=== PATIENT | female | born 1930 | race Caucasian/White ===

== ENCOUNTER → 2017-04-17 | Outpatient (CLI) | payer MEDICARE, OTHER ==
[~2017-04-17] MED LIST: CIPRO250 MG PO; CIPRO500 MG PO; CIPROFLOXACIN500 MG PO; Ciprofloxacin500 MG PO; FLAGYL250 MG PO; FLAGYL500 MG PO; Flagyl500 M1 PO; MACROBID100 M1 PO; METOPROLOL25 MG PO; Meclizine25 MG PO; PHENERGAN25 M3 PO; SYNTHROID0.025 MG PO; TORADOL10 MG PO; VICODIN 500 MG-1 TAB PO; ZANTAC150 MG PO; ZOFRAN ODT4 MG SL
== END ==
LOC: US 13:27
DX: N20.0 Calculus of kidney (principal)

== ENCOUNTER 2017-05-01 00:47 | Inpatient (IN) | payer MEDICARE, OTHER ==
[~2017-05-01] VITALS: Ht 157.5 cm; Wt 63.2 kg
[2017-05-01] VITALS (9 sets, daily range): BP systolic 122–157; BP diastolic 50–80
[2017-05-01 01:13] LABS: BASO % 0.4 % (0.0-1.0); EOS # 0.1 10*3/uL (0.0-0.4); EOS % 1.6 % (1.0-4.0); HEMATOCRIT 38.6 % (37.0-47.0); HEMOGLOBIN 12.9 g/dl (12.0-16.0); LYMPH # 0.9 10*3/uL (1.3-4.4); LYMPH % 12.5 % (27.0-41.0); MEAN CELL VOLUME 90.6 fl (81.0-99.0); MEAN CORPUSCULAR HGB 30.3 pg (27.0-31.0); MEAN CORPUSCULAR HGB CONC 33.4 g/dl (33.0-37.0); MEAN PLATELET VOLUME 10.5 fl (9.6-12.3); MONO # 0.7 10*3/uL (0.1-1.0); MONO % 10.7 % (3.0-9.0); NEUT # 5.1 10*3/uL (2.3-7.9); NEUT % 74.1 % (47.0-73.0); PLATELET COUNT AUTOMATED 233 10*3/uL (130-400); RED BLOOD COUNT 4.26 10*6/uL (4.10-5.10); RED CELL DISTRI WIDTH 12.5 % (0-14.5); WHITE BLOOD COUNT 6.9 10*3/uL (4.8-10.8)
[2017-05-01 01:23] LABS: INTERNATIONAL NORM RATIO 1.1 (2.0-3.5)
[2017-05-01 01:30] LABS: BILIRUBIN NEGATIVE (NEGATIVE); BLOOD 3+ (NEGATIVE); CLARITY SL CLOUDY (CLEAR); COLOR YELLOW (YELLOW); GLUCOSE NEGATIVE (NEGATIVE); KETONE NEGATIVE (NEGATIVE); LEUKO ESTERASE 1+ (NEGATIVE); NITRITE NEGATIVE (NEGATIVE); UROBILINOGEN 0.2 E.U./dl (0.2-1.0)
[2017-05-01 01:36] LABS: MUCOUS 1+
[2017-05-01 01:37] LABS: RBC 31-40 rbc/hpf (0-2)
[2017-05-01 01:39] LABS: BACTERIA 1+
[2017-05-01 01:41] LABS: ALBUMIN 3.9 gm/dl (3.1-4.5); ALKALINE PHOSPHATASE 89 U/L (45-117); BUN 11 mg/dl (7-24); CHLORIDE 105 mmol/L (98-107); CREATININE 0.84 mg/dL (0.55-1.02); POTASSIUM 3.6 mmol/L (3.5-5.1); SGOT/AST 18 IU/L (3-35); SGPT/ALT 24 U/L (12-78); SODIUM 141 mmol/L (136-145); TOTAL PROTEIN 7.1 gm/dL (6.4-8.2)
[2017-05-01 01:44] LABS: TROPONIN I < 0.015 ng/ml (<0.045)
--- NOTE | 2017-05-01 04:10 | NUR ---
CALLED TO GIVE REPORT, WAS ADVISED WILL HAVE TO CALL BACK.
--- NOTE | 2017-05-01 08:00 | NUR ---
RESTING QUIETLY NO C/O NO DISTRESS NOTED. HOB ELEVATED. SEE SHIFT ASSESSMENT.
[2017-05-01] MEDS ORDERED: LOSARTAN POTASS25 M1 PO (09:46)
[2017-05-01] MEDS ORDERED: AMLODIPINE BESYL5 MG PO (09:47)
[2017-05-01] MEDS ORDERED: VITAMIN D-32000 UNIT PO (09:48)
--- NOTE | 2017-05-01 09:49 | NUR ---
SONYA AGUILAR CALLED TO VERIFY MEDS AND MED REC UPDATED.
--- NOTE | 2017-05-01 15:50 | NUR ---
PT TEMP 102.9, MEDICATED IV TYLENOL 2 TABS.
--- NOTE | 2017-05-01 18:30 | NUR ---
RECHECK OF TEMP 99.5
[2017-05-02] VITALS: BP 175/67
--- NOTE | 2017-05-02 01:09 | NUR ---
DR. HORN NOTIFIED AT THIS TIME THAT PATIENTS TEMPERATURE 101.9 AFTER TYLENOL GIVEN 1 HOUR AGO. PATIENT ALSO STATES THAT SHE BELIEVES SHE IS ALLERGIC TO TYLENOL BECAUSE SHE THINKS HE THROAT IS GETTING SORE DUE TO THE TYLENOL. THIS NURSE TOLD THE PATIENT THAT SHE IS COUGHING ALOT AND IT MAY BE DUE TO THAT, THE PATIENT STATES SHE WOULD LIKE TO SWITCH TO SOME OTHER FORM OF MEDICATION FOR HER FEVER. DR. HORN STATED HE WOULD ADD MOTRIN
--- NOTE | 2017-05-02 03:35 | NUR ---
IV SITE LEAKING. DISCONTINUED AND RESTARTED IN THE LEFT AC #22 GAUGE. IV FLUIDS INFUSING WITHOUT PROBLEM
[2017-05-02 06:29] LABS: BASO % 0.3 % (0.0-1.0); EOS % 0.2 % (1.0-4.0); HEMATOCRIT 34.9 % (37.0-47.0); HEMOGLOBIN 11.8 g/dl (12.0-16.0); LYMPH # 1.1 10*3/uL (1.3-4.4); LYMPH % 18.7 % (27.0-41.0); MEAN CELL VOLUME 93.6 fl (81.0-99.0); MEAN CORPUSCULAR HGB 31.6 pg (27.0-31.0); MEAN CORPUSCULAR HGB CONC 33.8 g/dl (33.0-37.0); MONO # 0.8 10*3/uL (0.1-1.0); MONO % 14.3 % (3.0-9.0); NEUT # 3.8 10*3/uL (2.3-7.9); RED BLOOD COUNT 3.73 10*6/uL (4.10-5.10); RED CELL DISTRI WIDTH 12.7 % (0-14.5); WHITE BLOOD COUNT 5.8 10*3/uL (4.8-10.8)
[2017-05-02 06:31] LABS: PLATELET COUNT AUTOMATED 162 10*3/uL (130-400)
[2017-05-02 06:57] LABS: ALBUMIN 3.2 gm/dl (3.1-4.5); ALKALINE PHOSPHATASE 68 U/L (45-117); BUN 9 mg/dl (7-24); CHLORIDE 111 mmol/L (98-107); CHOLESTEROL 166 mg/dL (<200); CREATININE 0.72 mg/dL (0.55-1.02); FREE T4 0.93 ng/dl (0.76-1.46); HDL CHOLESTEROL 33 mg/dl (40-60); LDL CHOLESTEROL 106 mg/dL (9-159); POTASSIUM 3.4 mmol/L (3.5-5.1); SGOT/AST 35 IU/L (3-35); SGPT/ALT 22 U/L (12-78); SODIUM 144 mmol/L (136-145); TOTAL PROTEIN 6.3 gm/dL (6.4-8.2); TRIGLYCERIDES 133 mg/dl (<150); VLDL CHOLESTEROL 27 mg/dL (6-40)
[2017-05-02 07:04] LABS: INTERNATIONAL NORM RATIO 1.1 (2.0-3.5)
[2017-05-02 08:00] VITALS: BP 126/51
--- NOTE | 2017-05-02 08:37 | NUR ---
AMBULATORY TO BATHROOM, DENIES C/O AT PRESENT TIME. EASY RESPIRATIONS WITH SKIN W/D. SEE SHIFT ASSESSMENT.
--- NOTE | 2017-05-02 09:33 | NUR ---
SHAHLA AT DR GARCIA'S OFFICE NOTIFIED OF CONSULT.
--- NOTE | 2017-05-02 11:30 | NUR ---
DR HUANG WHO IS RUNDING WITH DR GARCIA FROM ID IN TO SEE PT & MADE AWARE OF FACIAL FLUSHING WITH VANCOMYCIN. PT ADMITS TO "SORE THROAT" BUT HAS NO DIFFICULTY SWALLOWING AT THIS TIME. WILL CONTINUE TO MONITOR.
--- NOTE | 2017-05-02 11:35 | NUR ---
Dredge Pipe Installer in to talk to patient. Patient states lives at home alone. There are 0 steps in the home. Physician: Dr. Lion Beavers Pharmacy: [facility] services: no Patient's level of ADLs: INDEPENDENT Patient has working utilities: yes DME: cane Follow-up physician's appointment after d/c: will be made by hospitalist nurse director upon discharge Does patient want to access PORTAL?: no Discharge plan discussed with patient. She lives at home alone but has a brother, [id number], and niece who check in on her. She lives in a mobile home so she states she is able to get around pretty easy. She does use a cane for ambulation. She is independent in her ADLs and ambulation. When medically stable she will be discharged to home. CARLOS JUAN
[2017-05-02 12:00] VITALS: BP 126/50
--- NOTE | 2017-05-02 13:20 | NUR ---
WITHIN MINUTES OF HANDING MEREPENEM, PT REQUESTS THAT IT BE STOPPED BC SHE IS AFRAID THAT SHE IS HAVING A NEGATIVE REACTIION TO THE ABX. NO FACIAL FLUSHING, NO SWALLOWING DIFFICULTIES, VSS. WILL CONTINUE TO MONITOR.
--- NOTE | 2017-05-02 14:31 | NUR ---
PRN CEPACOL LOZENGER ORDERED PER PT REQUEST FOR C/O :SORE THROAT" SEE EMAR.
[2017-05-02 16:00] VITALS: BP 148/52
--- NOTE | 2017-05-02 16:27 | NUR ---
DR GARCIA IN TO SEE PT & INFORMED OF PTS PERCIEVED REACTION TO VANCOMYCIN & MEREPENEM. WILL AWAIT FURTHER ORDERS.
[2017-05-02 20:00] VITALS: BP 154/68
--- NOTE | 2017-05-02 21:30 | NUR ---
PT REFUSING TYLENOL AT THIS TIME FOR TEMPERATURE. STATES SHE WANTS TO SEE IF IT WILL GO DOWN ON IT'S OWN AFTER TAKING THE TAMIFLU BECAUSE SHE BELIEVES SHE HAD A REACTION TO THE TYLENOL LAST NIGHT
--- NOTE | 2017-05-02 23:32 | NUR ---
SPOKE WITH DR. FIELDS AT THIS TIME AND STATED THAT PATIENT HAS A TEMP ONCE AGAIN OF 102. PATIENT REFUSING TYLENOL STATES SHE BELIEVES ITS MAKING HER THROAT SORE BUT SHE IS OK WITH GETTING ANOTHER DOSE OF IBUPROFEN THAT SHE HAD LAST NIGHT. DR. FIELDS STATED IT WAS OK TO PUT IN ANOTHER ONE TIME DOSE OF 600MG IBUPROFEN
[2017-05-03] VITALS: BP 153/52
[2017-05-03 06:57] LABS: BASO % 0.2 % (0.0-1.0); EOS % 0.2 % (1.0-4.0); HEMATOCRIT 35.1 % (37.0-47.0); HEMOGLOBIN 11.7 g/dl (12.0-16.0); LYMPH # 1.4 10*3/uL (1.3-4.4); LYMPH % 29.9 % (27.0-41.0); MEAN CELL VOLUME 93.1 fl (81.0-99.0); MEAN CORPUSCULAR HGB CONC 33.3 g/dl (33.0-37.0); MEAN PLATELET VOLUME 10.1 fl (9.6-12.3); MONO # 0.7 10*3/uL (0.1-1.0); MONO % 14.9 % (3.0-9.0); NEUT # 2.5 10*3/uL (2.3-7.9); NEUT % 54.2 % (47.0-73.0); PLATELET COUNT AUTOMATED 155 10*3/uL (130-400); RED BLOOD COUNT 3.77 10*6/uL (4.10-5.10); RED CELL DISTRI WIDTH 12.7 % (0-14.5); WHITE BLOOD COUNT 4.6 10*3/uL (4.8-10.8)
[2017-05-03 07:04] LABS: BUN 10 mg/dl (7-24); CHLORIDE 113 mmol/L (98-107); POTASSIUM 3.6 mmol/L (3.5-5.1); SODIUM 145 mmol/L (136-145)
[2017-05-03 08:00] VITALS: BP 126/61
--- NOTE | 2017-05-03 08:22 | NUR ---
MEDICATED PO ORDERED PER PT REQUEST WITH CEPACOL FOR C/O "SORE THROAT" SEE EMAR.
--- NOTE | 2017-05-03 08:26 | NUR ---
OOB TO CHAIR, PT STATES "FEELING BETTER TODAY" EASY RESPIRATIONS WTIH SKIN W/D. SEE SHIFT ASSESSMENT.
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
--- NOTE | 2017-05-03 10:49 | NUR ---
OOB TO CHAIR. DECLINES LOVENOX INJECTION
[2017-05-03] MEDS ORDERED: TAMIFLU 75MG CA75 MG PO (10:59)
--- NOTE | 2017-05-03 12:49 | NUR ---
Discharge instructions reviewed with patient/family. Patient receptive and verbalizes understanding. Written instructions given to patient/family. AMPARO FENG
== END 2017-05-03 12:49 | disposition home or self-care (01) | DRG 871 ==
LOC: ED 00:47 → 5E 04:06
PROVIDERS: Emergency Medicine Emergency Medical Services; Family Medicine; Student in an Organized Health Care Education/Training Program; ADMIT Student in an Organized Health Care Education/Training Program
DX: A41.9 Sepsis, unspecified organism (principal); J18.9 Pneumonia, unspecified organism; N39.0 Urinary tract infection, site not specified; R31.9 Hematuria, unspecified; N20.0 Calculus of kidney; I10 Essential (primary) hypertension; E03.9 Hypothyroidism, unspecified; J10.1 Influenza due to other identified influenza virus with other respiratory manifestations; Z88.1 Allergy status to other antibiotic agents; Z88.2 Allergy status to sulfonamides; Z88.0 Allergy status to penicillin; Z88.8 Allergy status to other drugs, medicaments and biological substances; Z87.442 Personal history of urinary calculi; Z98.42 Cataract extraction status, left eye; Z98.41 Cataract extraction status, right eye; Z79.899 Other long term (current) drug therapy

== ENCOUNTER 2017-05-16 08:13 | Emergency (ER) | payer MEDICARE, OTHER ==
[~2017-05-16] VITALS: Ht 167.6 cm; Wt 68.0 kg
[~2017-05-16 08:13] MED LIST changes: +AMLODIPINE BESYL5 MG PO; +LOSARTAN POTASS25 M1 PO; +TAMIFLU 75MG CA75 MG PO; +VITAMIN D-32000 UNIT PO
[2017-05-16 09:11] LABS: BASO % 0.4 % (0.0-1.0); EOS # 0.1 10*3/uL (0.0-0.4); EOS % 0.4 % (1.0-4.0); HEMOGLOBIN 11.3 g/dl (12.0-16.0); LYMPH # 1.3 10*3/uL (1.3-4.4); LYMPH % 11.2 % (27.0-41.0); MEAN CELL VOLUME 91.2 fl (81.0-99.0); MEAN CORPUSCULAR HGB 30.3 pg (27.0-31.0); MEAN CORPUSCULAR HGB CONC 33.2 g/dl (33.0-37.0); MEAN PLATELET VOLUME 9.2 fl (9.6-12.3); MONO % 9.2 % (3.0-9.0); NEUT # 8.9 10*3/uL (2.3-7.9); NEUT % 78.2 % (47.0-73.0); PLATELET COUNT AUTOMATED 317 10*3/uL (130-400); RED BLOOD COUNT 3.73 10*6/uL (4.10-5.10); RED CELL DISTRI WIDTH 12.1 % (0-14.5); WHITE BLOOD COUNT 11.4 10*3/uL (4.8-10.8)
[2017-05-16 09:27] LABS: ALKALINE PHOSPHATASE 76 U/L (45-117); BUN 11 mg/dl (7-24); CHLORIDE 107 mmol/L (98-107); CREATININE 0.67 mg/dL (0.55-1.02); POTASSIUM 3.8 mmol/L (3.5-5.1); SGOT/AST 14 IU/L (3-35); SGPT/ALT 19 U/L (12-78); SODIUM 141 mmol/L (136-145); TOTAL PROTEIN 6.4 gm/dL (6.4-8.2)
[2017-05-16 10:20] LABS: BILIRUBIN NEGATIVE (NEGATIVE); BLOOD 2+ (NEGATIVE); CLARITY SL CLOUDY (CLEAR); COLOR YELLOW (YELLOW); GLUCOSE NEGATIVE (NEGATIVE); KETONE NEGATIVE (NEGATIVE); LEUKO ESTERASE 1+ (NEGATIVE); NITRITE NEGATIVE (NEGATIVE); SPECIFIC GRAVITY 1.015 (1.005-1.030); UROBILINOGEN 0.2 E.U./dl (0.2-1.0)
[2017-05-16 10:32] LABS: RBC 16-20 rbc/hpf (0-2); WBC 31-40 wbc/hpf (0-5)
[2017-05-16 10:33] LABS: BACTERIA 2+
[2017-05-16] MEDS ORDERED: FLAGYL500 MG PO (10:57)
[2017-05-16] MEDS ORDERED: MACROBID100 M1 PO (10:57)
[2017-05-16] MEDS ORDERED: CIPRO500 MG PO (10:57)
== END 2017-05-16 12:00 | disposition home or self-care (01) ==
LOC: ED 08:13
PROVIDERS: Emergency Medicine
DX: K57.92 Diverticulitis of intestine, part unspecified, without perforation or abscess without bleeding (principal); N39.0 Urinary tract infection, site not specified; N20.0 Calculus of kidney; I10 Essential (primary) hypertension; E03.9 Hypothyroidism, unspecified; Z88.0 Allergy status to penicillin; Z88.2 Allergy status to sulfonamides; Z88.8 Allergy status to other drugs, medicaments and biological substances; Z79.899 Other long term (current) drug therapy

== ENCOUNTER 2017-07-28 05:22 | Emergency (ER) | payer MEDICARE, OTHER ==
[~2017-07-28] VITALS: Ht 157.4 cm; Wt 61.2 kg
[2017-07-28 06:11] LABS: BILIRUBIN NEGATIVE (NEGATIVE); BLOOD 3+ (NEGATIVE); CLARITY SL CLOUDY (CLEAR); COLOR YELLOW (YELLOW); GLUCOSE NEGATIVE (NEGATIVE); KETONE NEGATIVE (NEGATIVE); LEUKO ESTERASE 2+ (NEGATIVE); NITRITE NEGATIVE (NEGATIVE); UROBILINOGEN 0.2 E.U./dl (0.2-1.0)
[2017-07-28 06:21] LABS: BASO % 0.6 % (0.0-1.0); EOS # 0.2 10*3/uL (0.0-0.4); EOS % 2.7 % (1.0-4.0); HEMATOCRIT 38.1 % (37.0-47.0); HEMOGLOBIN 12.6 g/dl (12.0-16.0); LYMPH # 1.7 10*3/uL (1.3-4.4); LYMPH % 27.7 % (27.0-41.0); MEAN CELL VOLUME 92.9 fl (81.0-99.0); MEAN CORPUSCULAR HGB 30.7 pg (27.0-31.0); MEAN CORPUSCULAR HGB CONC 33.1 g/dl (33.0-37.0); MEAN PLATELET VOLUME 10.1 fl (9.6-12.3); MONO # 0.6 10*3/uL (0.1-1.0); MONO % 8.9 % (3.0-9.0); NEUT # 3.7 10*3/uL (2.3-7.9); NEUT % 59.6 % (47.0-73.0); PLATELET COUNT AUTOMATED 211 10*3/uL (130-400); RED CELL DISTRI WIDTH 13.2 % (0-14.5); WHITE BLOOD COUNT 6.2 10*3/uL (4.8-10.8)
[2017-07-28 06:26] LABS: BACTERIA 2+; EPITHELIAL CELLS 21-30; MUCOUS 1+; RBC TNTC rbc/hpf (0-2); WBC 41-50 wbc/hpf (0-5)
[2017-07-28 06:40] LABS: ALBUMIN 3.5 gm/dl (3.1-4.5); ALKALINE PHOSPHATASE 82 U/L (45-117); BUN 14 mg/dl (7-24); CHLORIDE 109 mmol/L (98-107); CREATININE 0.85 mg/dL (0.55-1.02); POTASSIUM 3.8 mmol/L (3.5-5.1); SGOT/AST 14 IU/L (3-35); SGPT/ALT 16 U/L (12-78); SODIUM 144 mmol/L (136-145); TOTAL PROTEIN 6.8 gm/dL (6.4-8.2)
== END 2017-07-28 09:00 | disposition home or self-care (01) ==
LOC: ED 05:22
PROVIDERS: Emergency Medicine
DX: M54.9 Dorsalgia, unspecified (principal); I10 Essential (primary) hypertension; Z87.442 Personal history of urinary calculi; Z88.0 Allergy status to penicillin; Z88.2 Allergy status to sulfonamides; Z88.1 Allergy status to other antibiotic agents; W00.0XXA Fall on same level due to ice and snow, initial encounter; Y93.89 Activity, other specified; Y92.89 Other specified places as the place of occurrence of the external cause; Y99.8 Other external cause status

== ENCOUNTER 2018-03-10 09:56 | Emergency (ER) | payer MEDICARE, OTHER ==
[~2018-03-10] VITALS: Ht 157.4 cm; Wt 60.3 kg
--- NOTE | ~2018-03-10 | EKG ---
[place], [place] ELECTROCARDIOGRAM REPORT NAME: BRODIE ENRIQUE UNIT #: [id number] ROOM: DOCTOR: EPIPHANY DRAFT REPORT BIRTHDATE: [birth year] [facility] Test Date: 2018-03-10 Test Time: 10:24:20 Pat Name: BRODIE ENRIQUE Department: Room: Gender: F Ic Design Manager: : [id number] Requested By: JERONIMO ZAMAN Order Number: [id number] Reading MD: Ramírez Mendosa MD Measurements Intervals [place] Rate: 63 P: 34 GA: 129 QRS: -12 QRSD: 80 T: 46 QT: 433 QTc: 444 Interpretive Statements Sinus rhythm No previous ECG available for comparison Electronically Signed On 03-11-2018 14:50:29 PDT by Ramírez Mendosa MD CM:EKGRPT:ELECTROCARDIOGRAM REPORT 1024 [id number] JERONIMO BROWN DRAFT REPORT JERONIMO ZAMAN DO
[2018-03-10 10:25] LABS: BASO % 0.4 % (0.0-1.0); EOS # 0.1 10*3/uL (0.0-0.4); EOS % 1.3 % (1.0-4.0); HEMATOCRIT 41.3 % (37.0-47.0); HEMOGLOBIN 13.6 g/dl (12.0-16.0); LYMPH % 22.8 % (27.0-41.0); MEAN CELL VOLUME 91.6 fl (81.0-99.0); MEAN CORPUSCULAR HGB 30.2 pg (27.0-31.0); MEAN CORPUSCULAR HGB CONC 32.9 g/dl (33.0-37.0); MEAN PLATELET VOLUME 9.8 fl (9.6-12.3); MONO # 0.7 10*3/uL (0.1-1.0); NEUT % 66.8 % (47.0-73.0); PLATELET COUNT AUTOMATED 270 10*3/uL (130-400); RED BLOOD COUNT 4.51 10*6/uL (4.10-5.10); RED CELL DISTRI WIDTH 12.1 % (0-14.5)
[2018-03-10 10:27] LABS: BILIRUBIN NEGATIVE (NEGATIVE); BLOOD 3+ (NEGATIVE); CLARITY CLOUDY (CLEAR); COLOR YELLOW (YELLOW); GLUCOSE NEGATIVE (NEGATIVE); KETONE NEGATIVE (NEGATIVE); LEUKO ESTERASE 2+ (NEGATIVE); NITRITE NEGATIVE (NEGATIVE); PH 5.5 (5.0-9.0); UROBILINOGEN 0.2 E.U./dl (0.2-1.0)
[2018-03-10 10:35] LABS: BACTERIA 2+; EPITHELIAL CELLS 21-30; MUCOUS 2+; RBC TNTC rbc/hpf (0-2); WBC 31-40 wbc/hpf (0-5)
[2018-03-10 10:46] LABS: ALBUMIN 3.7 gm/dl (3.1-4.5); ALKALINE PHOSPHATASE 87 U/L (45-117); BUN 16 mg/dl (7-24); CHLORIDE 108 mmol/L (98-107); CREATININE 0.87 mg/dL (0.55-1.02); LIPASE 239 U/L (73-393); POTASSIUM 4.3 mmol/L (3.5-5.1); SGOT/AST 13 IU/L (3-35); SGPT/ALT 21 U/L (12-78); SODIUM 143 mmol/L (136-145); TOTAL PROTEIN 7.3 gm/dL (6.4-8.2)
[2018-03-10 10:55] LABS: TROPONIN I < 0.015 ng/ml (<0.045)
[2018-03-10] MEDS ORDERED: CIPRO500 MG PO (11:49)
== END 2018-03-10 12:04 | disposition home or self-care (01) ==
LOC: ED 09:56
PROVIDERS: Emergency Medicine
DX: N39.0 Urinary tract infection, site not specified (principal); N20.0 Calculus of kidney; I10 Essential (primary) hypertension; Z88.8 Allergy status to other drugs, medicaments and biological substances; Z88.0 Allergy status to penicillin; Z88.2 Allergy status to sulfonamides; Z88.1 Allergy status to other antibiotic agents; Z79.899 Other long term (current) drug therapy

== ENCOUNTER → 2018-04-15 | Outpatient (CLI) | payer MEDICARE, OTHER | END | disposition home or self-care (01) | LOC: LAB 10:37 | DX: N20.0 Calculus of kidney (principal) ==

== ENCOUNTER → 2018-12-03 | Outpatient (CLI) | payer MEDICARE, OTHER | END | disposition home or self-care (01) | LOC: US 06:15 | DX: K81.9 Cholecystitis, unspecified (principal); R10.13 Epigastric pain; Z87.442 Personal history of urinary calculi ==

== ENCOUNTER → 2019-12-15 | Outpatient (CLI) | payer MEDICARE, OTHER ==
[2019-12-15 10:51] LABS: HEMATOCRIT 42.1 % (37.0-47.0); MEAN CELL VOLUME 92.7 fl (81.0-99.0); MEAN CORPUSCULAR HGB 29.7 pg (27.0-31.0); MEAN CORPUSCULAR HGB CONC 32.1 g/dl (33.0-37.0); MEAN PLATELET VOLUME 10.2 fl (9.6-12.3); RED BLOOD COUNT 4.54 10*6/uL (4.10-5.10); RED CELL DISTRI WIDTH 12.4 % (0-14.5); WHITE BLOOD COUNT 6.6 10*3/uL (4.8-10.8)
[2019-12-15 10:52] LABS: ALBUMIN 3.6 gm/dl (3.1-4.5); ALKALINE PHOSPHATASE 86 U/L (45-117); BUN 18 mg/dl (7-24); CHLORIDE 109 mmol/L (98-107); CHOLESTEROL 219 mg/dL (<200); CREATININE 0.81 mg/dL (0.55-1.02); HDL CHOLESTEROL 35 mg/dl (40-60); LDL CHOLESTEROL 145 mg/dL (9-159); POTASSIUM 4.4 mmol/L (3.5-5.1); SGOT/AST 11 IU/L (3-35); SGPT/ALT 18 U/L (12-78); SODIUM 141 mmol/L (136-145); TOTAL PROTEIN 7.7 gm/dL (6.4-8.2); TRIGLYCERIDES 197 mg/dl (<150); VLDL CHOLESTEROL 39 mg/dL (6-40)
[2019-12-15 11:34] LABS: VITAMIN D, 25-HYDROXY 18.2 ng/mL (30-100)
== END | disposition home or self-care (01) ==
LOC: LAB 09:50
PROVIDERS: Family Medicine
DX: I10 Essential (primary) hypertension (principal); E55.9 Vitamin D deficiency, unspecified; E78.00 Pure hypercholesterolemia, unspecified; R53.83 Other fatigue; L65.9 Nonscarring hair loss, unspecified

== ENCOUNTER 2020-01-10 02:12 | Emergency (ER) | payer MEDICARE, OTHER ==
[~2020-01-10] VITALS: Ht 157.4 cm; Wt 54.4 kg
[2020-01-10 02:41] LABS: BASO % 0.4 % (0.0-1.0); EOS # 0.2 10*3/uL (0.0-0.4); EOS % 2.4 % (1.0-4.0); HEMATOCRIT 39.8 % (37.0-47.0); LYMPH # 2.3 10*3/uL (1.3-4.4); LYMPH % 32.7 % (27.0-41.0); MEAN CELL VOLUME 92.6 fl (81.0-99.0); MEAN CORPUSCULAR HGB 29.5 pg (27.0-31.0); MEAN CORPUSCULAR HGB CONC 31.9 g/dl (33.0-37.0); MEAN PLATELET VOLUME 9.9 fl (9.6-12.3); MONO # 0.7 10*3/uL (0.1-1.0); NEUT # 3.8 10*3/uL (2.3-7.9); NEUT % 54.1 % (47.0-73.0); PLATELET COUNT AUTOMATED 278 10*3/uL (130-400); RED CELL DISTRI WIDTH 12.3 % (0-14.5)
[2020-01-10] MEDS ORDERED: Lopressor25 MG PO (02:54)
[2020-01-10 03:01] LABS: BUN 22 mg/dl (7-24); CHLORIDE 109 mmol/L (98-107); CREATININE 0.92 mg/dL (0.55-1.02); POTASSIUM 3.6 mmol/L (3.5-5.1); SODIUM 140 mmol/L (136-145); TROPONIN I < 0.015 ng/ml (<0.045)
[2020-01-10] MEDS ORDERED: MECLIZINE HYD12.5 MG PO (03:35)
== END 2020-01-10 04:00 | disposition home or self-care (01) ==
LOC: ED 02:12
PROVIDERS: Emergency Medicine
DX: H81.20 Vestibular neuronitis, unspecified ear (principal); Z88.0 Allergy status to penicillin; Z88.2 Allergy status to sulfonamides; Z88.1 Allergy status to other antibiotic agents; Z88.8 Allergy status to other drugs, medicaments and biological substances; Z79.899 Other long term (current) drug therapy

== ENCOUNTER 2020-01-10 14:35 | Inpatient (IN) | payer MEDICARE, OTHER ==
[2020-01-10] VITALS (7 sets, daily range): BP systolic 162–197; BP diastolic 48–82
[~2020-01-10] VITALS: Ht 157.4 cm; Wt 57.3 kg
[~2020-01-10 14:35] MED LIST changes: +Lopressor25 MG PO; +MECLIZINE HYD12.5 MG PO
[2020-01-10 17:06] LABS: BILIRUBIN NEGATIVE (NEGATIVE); BLOOD NEGATIVE (NEGATIVE); CLARITY CLEAR (CLEAR); COLOR YELLOW (YELLOW); GLUCOSE NEGATIVE (NEGATIVE); KETONE NEGATIVE (NEGATIVE); SPECIFIC GRAVITY 1.005 (1.005-1.030)
[2020-01-10 17:07] LABS: LEUKO ESTERASE TRACE (NEGATIVE); NITRITE NEGATIVE (NEGATIVE); PH 7.5 (5.0-9.0); UROBILINOGEN 0.2 E.U./dl (0.2-1.0)
[2020-01-10 17:09] LABS: BACTERIA TRACE; EPITHELIAL CELLS 0-2; RBC 0-2 rbc/hpf (0-2)
[2020-01-11] VITALS (9 sets, daily range): BP systolic 94–152; BP diastolic 42–79
[2020-01-11 07:13] LABS: CHOLESTEROL 188 mg/dL (<200); HDL CHOLESTEROL 27 mg/dl (40-60); LDL CHOLESTEROL 129 mg/dL (9-159); TRIGLYCERIDES 161 mg/dl (<150); VLDL CHOLESTEROL 32 mg/dL (6-40)
[2020-01-12] VITALS: BP 134/80
[2020-01-12 06:27] LABS: BASO % 0.6 % (0.0-1.0); EOS # 0.2 10*3/uL (0.0-0.4); EOS % 3.6 % (1.0-4.0); HEMATOCRIT 40.7 % (37.0-47.0); LYMPH # 1.8 10*3/uL (1.3-4.4); LYMPH % 28.3 % (27.0-41.0); MEAN CELL VOLUME 93.8 fl (81.0-99.0); MEAN CORPUSCULAR HGB 29.5 pg (27.0-31.0); MEAN CORPUSCULAR HGB CONC 31.4 g/dl (33.0-37.0); MEAN PLATELET VOLUME 10.3 fl (9.6-12.3); MONO # 0.6 10*3/uL (0.1-1.0); NEUT # 3.7 10*3/uL (2.3-7.9); NEUT % 57.9 % (47.0-73.0); PLATELET COUNT AUTOMATED 255 10*3/uL (130-400); RED BLOOD COUNT 4.34 10*6/uL (4.10-5.10); RED CELL DISTRI WIDTH 12.3 % (0-14.5); WHITE BLOOD COUNT 6.4 10*3/uL (4.8-10.8)
[2020-01-12 06:45] LABS: BUN 14 mg/dl (7-24); CHLORIDE 110 mmol/L (98-107); CREATININE 0.72 mg/dL (0.55-1.02); SODIUM 139 mmol/L (136-145)
[2020-01-12 07:00] VITALS: BP 166/58
[2020-01-12 08:00] VITALS: BP 170/76
[2020-01-12 12:00] VITALS: BP 154/47
[2020-01-12 16:00] VITALS: BP 142/57
[2020-01-12 20:00] VITALS: BP 140/50
[2020-01-13 01:30] VITALS: BP 152/76
[2020-01-13 08:00] VITALS: BP 138/76
[2020-01-13 12:00] VITALS: BP 157/63
[2020-01-13 16:00] VITALS: BP 152/54
[2020-01-13 20:05] VITALS: BP 148/66
[2020-01-13 23:47] VITALS: BP 162/74
[2020-01-14 02:15] VITALS: BP 164/72
[2020-01-14 03:00] VITALS: BP 150/72
[2020-01-14 08:00] VITALS: BP 156/50
[2020-01-14] MEDS ORDERED: AMLODIPINE BESY10 MG PO (08:26)
[2020-01-14] MEDS ORDERED: LIPITOR10 MG PO (08:26)
[2020-01-14] MEDS ORDERED: ASPIRIN CHEWABL81 M1 PO (08:27)
[2020-01-14] MEDS ORDERED: COZAAR25 M1 PO (08:40)
[2020-01-14 12:00] VITALS: BP 160/56
== END 2020-01-14 13:57 | disposition other institution (70) | DRG 65 ==
LOC: ED 14:35 → 4E 16:37 → EDHOLD 16:37 → 4E 17:27
PROVIDERS: Emergency Medicine; ADMIT Internal Medicine
DX: I63.89 Other cerebral infarction (principal); F32.0 Major depressive disorder, single episode, mild; G81.91 Hemiplegia, unspecified affecting right dominant side; I10 Essential (primary) hypertension; F41.1 Generalized anxiety disorder; R00.1 Bradycardia, unspecified; T44.7X5A Adverse effect of beta-adrenoreceptor antagonists, initial encounter; R62.7 Adult failure to thrive; E03.9 Hypothyroidism, unspecified; Z20.828 Contact with and (suspected) exposure to other viral communicable diseases; M54.9 Dorsalgia, unspecified; G89.29 Other chronic pain; Z82.49 Family history of ischemic heart disease and other diseases of the circulatory system; Z80.0 Family history of malignant neoplasm of digestive organs; Y92.89 Other specified places as the place of occurrence of the external cause; Z88.0 Allergy status to penicillin; Z88.2 Allergy status to sulfonamides; Z88.8 Allergy status to other drugs, medicaments and biological substances

== ENCOUNTER → 2020-04-01 | Outpatient (CLI) | payer MEDICARE, OTHER ==
[~2020-04-01] MED LIST changes: +AMLODIPINE BESY10 MG PO; +ASPIRIN CHEWABL81 M1 PO; +COZAAR25 M1 PO; +LIPITOR10 MG PO
== END | disposition home or self-care (01) ==
LOC: US 09:49
PROVIDERS: ATTEND Family Medicine
DX: R10.11 Right upper quadrant pain (principal); R11.0 Nausea

== ENCOUNTER → 2020-05-30 | Outpatient (CLI) | payer MEDICARE, OTHER | END | disposition home or self-care (01) | LOC: CARD 08:27 | PROVIDERS: ATTEND Internal Medicine Cardiovascular Disease | DX: R06.02 Shortness of breath (principal); I10 Essential (primary) hypertension; Z86.73 Personal history of transient ischemic attack (TIA), and cerebral infarction without residual deficits ==

== ENCOUNTER 2021-07-15 01:01 | Emergency (ER) | payer MEDICARE, OTHER ==
[~2021-07-15] VITALS: Ht 157.4 cm
[2021-07-15 01:56] LABS: BASO # 0.1 10*3/uL (0.0-0.1); BASO % 0.6 % (0.0-1.0); EOS # 0.2 10*3/uL (0.0-0.4); HEMATOCRIT 42.1 % (37.0-47.0); LYMPH # 2.5 10*3/uL (1.3-4.4); LYMPH % 29.8 % (27.0-41.0); MEAN CELL VOLUME 91.5 fl (81.0-99.0); MEAN CORPUSCULAR HGB 30.2 pg (27.0-31.0); MEAN PLATELET VOLUME 9.5 fl (9.6-12.3); MONO % 11.5 % (3.0-9.0); NEUT # 4.7 10*3/uL (2.3-7.9); NEUT % 55.9 % (47.0-73.0); PLATELET COUNT AUTOMATED 289 10*3/uL (130-400); RED CELL DISTRI WIDTH 12.1 % (0-14.5); WHITE BLOOD COUNT 8.5 10*3/uL (4.8-10.8)
[2021-07-15 02:11] LABS: BILIRUBIN Negative (Negative); BLOOD Negative (Negative); CLARITY Clear (Clear); COLOR Yellow (Yellow); GLUCOSE Negative (Negative); KETONE Negative (Negative); LEUKO ESTERASE Negative (Negative); NITRITE Negative (Negative); SPECIFIC GRAVITY <= 1.005 (1.001-1.030); UROBILINOGEN 0.2 E.U./dl (0.0-1.0)
[2021-07-15 02:12] LABS: ALBUMIN 3.8 gm/dl (3.1-4.5); ALKALINE PHOSPHATASE 89 U/L (45-117); BUN 15 mg/dl (7-24); CHLORIDE 110 mmol/L (98-107); CREATININE 0.76 mg/dL (0.55-1.02); POTASSIUM 3.7 mmol/L (3.5-5.1); SGOT/AST 12 IU/L (3-35); SGPT/ALT 18 U/L (12-78); SODIUM 140 mmol/L (136-145); TOTAL PROTEIN 7.5 gm/dL (6.4-8.2)
[2021-07-15 02:18] LABS: RBC 0-2 rbc/hpf (0-2); WBC 0-2 wbc/hpf (0-5)
== END 2021-07-15 03:42 | disposition home or self-care (01) ==
LOC: ED 01:01
PROVIDERS: Emergency Medicine
DX: R42 Dizziness and giddiness (principal); E03.9 Hypothyroidism, unspecified; I10 Essential (primary) hypertension; Z87.442 Personal history of urinary calculi; Z88.0 Allergy status to penicillin; Z88.2 Allergy status to sulfonamides; Z88.1 Allergy status to other antibiotic agents; Z88.8 Allergy status to other drugs, medicaments and biological substances

== ENCOUNTER → 2021-08-04 | Outpatient (CLI) | payer MEDICARE, OTHER | END | disposition home or self-care (01) | LOC: RAD 09:46 | PROVIDERS: ATTEND Family Medicine | DX: K21.9 Gastro-esophageal reflux disease without esophagitis (principal); J44.9 Chronic obstructive pulmonary disease, unspecified; I70.0 Atherosclerosis of aorta; I05.9 Rheumatic mitral valve disease, unspecified; M85.88 Other specified disorders of bone density and structure, other site ==

== ENCOUNTER → 2021-08-31 | Outpatient (CLI) | payer MEDICARE, OTHER | END | disposition home or self-care (01) | LOC: CARD 14:53 | PROVIDERS: ATTEND Family Medicine | DX: I34.0 Nonrheumatic mitral (valve) insufficiency (principal); I11.9 Hypertensive heart disease without heart failure; I25.10 Atherosclerotic heart disease of native coronary artery without angina pectoris ==

== ENCOUNTER 2021-12-28 10:39 | Emergency (ER) | payer MEDICARE, OTHER ==
[~2021-12-28] VITALS: Ht 157.4 cm; Wt 49.4 kg
[2021-12-28 11:36] LABS: BASO % 0.5 % (0.0-1.0); EOS # 0.1 10*3/uL (0.0-0.4); EOS % 1.4 % (1.0-4.0); LYMPH # 1.1 10*3/uL (1.3-4.4); LYMPH % 17.7 % (27.0-41.0); MEAN CELL VOLUME 93.3 fl (81.0-99.0); MEAN CORPUSCULAR HGB 30.4 pg (27.0-31.0); MEAN CORPUSCULAR HGB CONC 32.6 g/dl (33.0-37.0); MEAN PLATELET VOLUME 9.4 fl (9.6-12.3); MONO # 0.6 10*3/uL (0.1-1.0); MONO % 9.5 % (3.0-9.0); NEUT # 4.2 10*3/uL (2.3-7.9); NEUT % 70.2 % (47.0-73.0); PLATELET COUNT AUTOMATED 307 10*3/uL (130-400); RED BLOOD COUNT 4.18 10*6/uL (4.10-5.10); RED CELL DISTRI WIDTH 12.3 % (0-14.5); WHITE BLOOD COUNT 5.9 10*3/uL (4.8-10.8)
[2021-12-28 11:57] LABS: ALKALINE PHOSPHATASE 79 U/L (45-117); BUN 15 mg/dl (7-24); CHLORIDE 111 mmol/L (98-107); POTASSIUM 3.9 mmol/L (3.5-5.1); SGOT/AST 14 IU/L (3-35); SGPT/ALT 15 U/L (12-78); SODIUM 142 mmol/L (136-145); TOTAL PROTEIN 6.5 gm/dL (6.4-8.2)
[2021-12-28 12:45] LABS: BILIRUBIN Negative (Negative); BLOOD Negative (Negative); CLARITY Clear (Clear); COLOR Yellow (Yellow); GLUCOSE Negative (Negative); KETONE Negative (Negative); LEUKO ESTERASE 1+ (Negative); NITRITE Negative (Negative); PH 7.5 (4.5-8.0)
[2021-12-28 13:02] LABS: BACTERIA 1+
== END 2021-12-28 13:28 | disposition home or self-care (01) ==
LOC: ED 10:39
PROVIDERS: Emergency Medicine
DX: R42 Dizziness and giddiness (principal); Z88.0 Allergy status to penicillin; Z88.1 Allergy status to other antibiotic agents; Z88.8 Allergy status to other drugs, medicaments and biological substances